=== PATIENT | male | born 1965 | race Caucasian/White ===

== ENCOUNTER 2021-09-23 07:36 | Outpatient (CLI) | payer OTHER, SELFPAY ==
--- NOTE | ~2021-09-23 | XR_ITS ---
EXAMINATION: XR catheter cholangiogram DATE: 09/23/2021 08:38 INDICATION: Chronic cholecystitis TECHNIQUE: A seam steamer radiograph was obtained. 9 fluoroscopic images of the right upper quadrant were ob tained during injection of 50 mL Omnipaque 240 contrast into the patient's existing percutaneous chol ecystostomy tube. The gallbladder was then aspirated and the catheter flushed with sterile saline. Th e amount of fluoroscopy time used during this procedure was 0.5 minutes. COMPARISON: None. FINDINGS: Spindraw Operator image demonstrates a right upper quadrant percutaneous cholecystostomy tube with loop formed in expected location of the gallbladder. Large amount of gas and moderate amount of stool scattered thr oughout the colon. No dilated loops of bowel to suggest obstruction. Streaky right basilar atelectasi s. Three lead pacemaker seen with leads projecting over the expected locations of the right atrial ap pendage, apex of the right ventricle and overlying the left ventricle likely having traversed the cor onary sinus. Contrast injection demonstrates filling of the the gallbladder with trabeculation along the inner muc osal surface of the gallbladder. Larger 6 mm filling defect along the gallbladder wall consistent wit h a polyp. There is prompt passage of contrast through the cystic and common bile ducts into the duod enum. The cystic and common bile ducts appear normal with no strictures or choledocholithiasis. There is reflux of contrast into the central intrahepatic biliary tree which also appears unremarkable. IMPRESSION: 1. Percutaneous cholecystostomy tube in expected position with loops formed in the gallbladder. 2. 6 mm filling defect in the gallbladder likely representing a gallbladder polyp. 3. Normal cystic and common bile ducts with no intraluminal filling defects or strictures. Reviewed, dictated and finalized at location A. ORATE TREASURY ANALYST IMPRESSION: 1. Percutaneous cholecystostomy tube in expected position with loops formed in the gallbladder. 2. 6 mm filling defect in the gallbladder likely representing a gallbladder carloz yp. 3. Normal cystic and common bile ducts with no intraluminal filling defects or strictures.
== END 2021-09-23 07:37 | disposition home or self-care (01) ==
LOC: ANHIMG 07:44
DX: K80.10 Calculus of gallbladder with chronic cholecystitis without obstruction (principal)
CPT/HCPCS: 47531; Q9966